=== PATIENT | female | born 1995 | race Caucasian/White ===

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

== ENCOUNTER 2017-02-25 17:47 | Emergency (ER) | payer OTHER, BC ==
[~2017-02-25] VITALS: Ht 170.2 cm; Wt 81.6 kg
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
[2017-02-25] MEDS ORDERED: SUDAFED (18:31)
== END 2017-02-25 20:37 | disposition home or self-care (01) ==
LOC: SED 17:47
DX: S09.90XA Unspecified injury of head, initial encounter (principal); Z91.030 Bee allergy status; V43.52XA Car driver injured in collision with other type car in traffic accident, initial encounter; Y93.89 Activity, other specified; Y92.410 Unspecified street and highway as the place of occurrence of the external cause
CPT/HCPCS: 70450; 84703; 99284

== ENCOUNTER 2017-02-28 14:49 | Emergency (ER) | payer OTHER, BC ==
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
[~2017-02-28 14:49] MED LIST changes: +SUDAFED
[2017-02-28] MEDS ORDERED: ZENCHENT1 EACH PO (14:50)
== END 2017-02-28 17:02 | disposition home or self-care (01) ==
LOC: SED 14:49
DX: S16.1XXA Strain of muscle, fascia and tendon at neck level, initial encounter (principal); Z90.49 Acquired absence of other specified parts of digestive tract; Z79.899 Other long term (current) drug therapy; V89.2XXA Person injured in unspecified motor-vehicle accident, traffic, initial encounter; Y92.410 Unspecified street and highway as the place of occurrence of the external cause
CPT/HCPCS: 72040; 99283